=== PATIENT | female | born 1940 | race Caucasian/White ===

== ENCOUNTER 2020-09-18 18:09 | Emergency (ER) | payer MEDICARE, OTHER ==
[~2020-09-18 18:09] MED LIST: ASPIRIN EC81 MG PO; ATORVASTATIN CA20 MG PO; CETIRIZINE HCL10 MG PO; COZAAR 50MG TAB50 MG PO; DONEPEZIL HCL10 MG PO; ESCITALOPRAM OX10 MG PO; FUROSEMIDE40 MG PO; IMDUR ER TAB 6060 MG PO; LEVOTHYROXINE112 MCG PO; NITROGLYCERIN0.4 MG SL; PANTOPRAZOLE SO40 MG PO
[2020-09-19] MEDS ORDERED: DESYREL 50 MG T50 MG PO (19:08)
[2020-09-19] MEDS ORDERED: EUTHYROX150 MCG PO (19:10)
== END 2020-09-18 22:25 | disposition left against medical advice (07) ==
LOC: ER1 18:09
DX: Z53.8 Procedure and treatment not carried out for other reasons (principal)
CPT/HCPCS: J0696; J1100; J1650; J7030; J7040

== ENCOUNTER 2020-09-19 12:54 | Inpatient (IN) | payer MEDICARE, OTHER ==
[2020-09-19 13:52] LABS: HEMOGLOBIN 11.5 gm/dl (12.3-15.3); RED BLOOD COUNT 3.89 M/UL (4.00-5.10); WHITE BLOOD COUNT 6.2 K/UL (4.5-11.0)
[2020-09-19 14:12] LABS: BUN/CREATININE RATIO 23 (0-10)
[2020-09-19] MEDS ORDERED: DESYREL 50 MG T50 MG PO (19:08)
[2020-09-19] MEDS ORDERED: EUTHYROX150 MCG PO (19:10)
[2020-09-20 04:04] LABS: HEMOGLOBIN 11.4 gm/dl (12.3-15.3); RED BLOOD COUNT 3.82 M/UL (4.00-5.10); WHITE BLOOD COUNT 5.4 K/UL (4.5-11.0)
[2020-09-20 04:40] LABS: BUN/CREATININE RATIO 16 (0-10)
[2020-09-21 06:03] LABS: HEMOGLOBIN 10.7 gm/dl (12.3-15.3); RED BLOOD COUNT 3.64 M/UL (4.00-5.10)
[2020-09-21 06:14] LABS: WHITE BLOOD COUNT 9.2 K/UL (4.5-11.0)
[2020-09-21 06:22] LABS: BUN/CREATININE RATIO 21 (0-10)
[2020-09-21] MEDS ORDERED: PROVENTIL HFA6.7 GM INH (08:58)
[2020-09-21] MEDS ORDERED: AUGMENTIN 875-1 EACH PO (08:58)
[2020-09-21] MEDS ORDERED: DECADRON6 MG PO (08:58)
[2020-09-21] MEDS ORDERED: FLONASE 0.05% N16 GM (10:14)
== END 2020-09-21 12:01 | disposition home or self-care (01) | DRG 177 ==
LOC: ER1 12:54 → CDU 18:09 → MED SURG 4 09-20 21:28
PROVIDERS: Emergency Medicine; ADMIT Internal Medicine
PROC: 8E0ZXY6 Isolation (ICD-10-PCS; 2020-09-19)
PROC: XW033E5 Introduction of Remdesivir Anti-infective into Peripheral Vein, Percutaneous Approach, New Technology Group 5 (ICD-10-PCS; principal; 2020-09-20)
DX: U07.1 COVID-19 (principal); J12.89 Other viral pneumonia; J90 Pleural effusion, not elsewhere classified; I25.10 Atherosclerotic heart disease of native coronary artery without angina pectoris; Z95.5 Presence of coronary angioplasty implant and graft; K21.9 Gastro-esophageal reflux disease without esophagitis; E78.5 Hyperlipidemia, unspecified; R00.1 Bradycardia, unspecified; F32.9 Major depressive disorder, single episode, unspecified; Z86.718 Personal history of other venous thrombosis and embolism; Z83.3 Family history of diabetes mellitus; F03.90 Unspecified dementia, unspecified severity, without behavioral disturbance, psychotic disturbance, mood disturbance, and anxiety; E03.9 Hypothyroidism, unspecified; H91.90 Unspecified hearing loss, unspecified ear; I71.2 Thoracic aortic aneurysm, without rupture; Z79.899 Other long term (current) drug therapy; Z79.82 Long term (current) use of aspirin; Z86.79 Personal history of other diseases of the circulatory system
CPT/HCPCS: 36415; 71045; 80048; 80053; 82550; 82553; 83735; 83874; 83880; 84439; 84443; 84484; 85025; 85379; 85610; 87040; 93005; 96365; 96366; 96372; 96374; 96375; 96376; 99285; G0378; J0696; J1100; J1650; J7030; J7040; Q9967; U0002

== ENCOUNTER → 2021-02-21 | Outpatient (CLI) | payer MEDICARE ==
[~2021-02-21] MED LIST changes: +AUGMENTIN 875-1 EACH PO; +DECADRON6 MG PO; +DESYREL 50 MG T50 MG PO; +EUTHYROX150 MCG PO; +FLONASE 0.05% N16 GM; +PROVENTIL HFA6.7 GM INH
== END ==
LOC: KOH-I 10:16
DX: M54.2 Cervicalgia (principal); M50.323 Other cervical disc degeneration at C6-C7 level
CPT/HCPCS: 72040

== ENCOUNTER → 2021-02-28 | Outpatient (CLI) | payer MEDICARE | LOC: KOH-I 02-21 10:14 | DX: R91.8 Other nonspecific abnormal finding of lung field (principal) | CPT/HCPCS: 71250 ==

== ENCOUNTER → 2021-07-26 | Outpatient (CLI) | payer MEDICARE | LOC: SLEEP 15:14 | DX: R06.83 Snoring (principal) | CPT/HCPCS: 95810 ==

== ENCOUNTER → 2021-07-27 | Outpatient (CLI) | payer MEDICARE | LOC: EXRD 13:16 | DX: F03.90 Unspecified dementia, unspecified severity, without behavioral disturbance, psychotic disturbance, mood disturbance, and anxiety (principal); I25.10 Atherosclerotic heart disease of native coronary artery without angina pectoris | CPT/HCPCS: 93880 ==

== ENCOUNTER → 2022-01-03 | Outpatient (CLI) | payer MEDICARE | LOC: KOH-I 13:38 | DX: M79.671 Pain in right foot (principal) | CPT/HCPCS: 73620 ==

== ENCOUNTER → 2022-01-24 | Outpatient (CLI) | payer MEDICARE | LOC: HEART 5 13:38 | DX: J44.9 Chronic obstructive pulmonary disease, unspecified (principal) | CPT/HCPCS: 94010 ==

== ENCOUNTER → 2022-05-23 | Outpatient (CLI) | payer MEDICARE | LOC: EMI 05-20 16:45 | DX: F03.90 Unspecified dementia, unspecified severity, without behavioral disturbance, psychotic disturbance, mood disturbance, and anxiety (principal); G31.9 Degenerative disease of nervous system, unspecified; R90.82 White matter disease, unspecified | CPT/HCPCS: 70551 ==